=== PATIENT | male | born 1980 | race Caucasian/White ===

== ENCOUNTER 2021-12-09 17:49 | Emergency (ER) | payer OTHER, SELFPAY ==
--- NOTE | ~2021-12-09 | CT_ITS ---
EXAMINATION: CT abdomen pelvis w con DATE: 12/09/2021 23:01 INDICATION: Left upper quadrant abdominal pain, nausea and vomiting. Constipation. History of gastric bypass surgery 6 years ago. TECHNIQUE: Computed tomography (CT) of the abdomen and pelvis was performed with 100 CC Omnipaque 300 intravenous contrast. Automated exposure control and iterative reconstruction technique were employe d. Exam dose: 935.58 mGy-cm total exam DLP. COMPARISON: 02/06/2017 CT abdomen pelvis FINDINGS: The lung bases are clear. Normal heart size. No pericardial or pleural effusion. Status post gastric bypass surgery. Cannot exclude small stones in the dependent aspect of the gallbladder. Consider gallbladder ultrasou nd correlation. No pericholecystic fluid or fat stranding or abnormal gallbladder distention. No bile duct or pancreatic duct dilatation. No hepatic, splenic or pancreatic or adrenal space-occupying mass lesion. No renal mass lesion or urinary tract calculus or hydroureteronephrosis. The urinary bladder is diste nded. No bladder wall thickening or intraluminal filling defect is noted. Prominent bilateral facet d ifference calcifications, suggesting diabetes. Normal caliber of the abdominal aorta. No intraperitoneal or retroperitoneal or pelvic mass lesion or adenopathy or ascites. Normal appendix. No bowel obstruction or intraperitoneal free air. Very small fat-containing umbilical and left inguinal hernia is No suspicious osteolytic or osteoblastic lesions. IMPRESSION: Possible cholelithiasis Status post gastric bypass surgery Vas deferens calcifications, suggesting diabetes Reviewed, dictated and finalized at [facility] Reviewed, dictated and finalized at [facility].
[2021-12-09 19:06] VITALS: BP 128/86; PULSE 88; RESP 18; TEMP 36.2; O2SAT 99
--- NOTE | 2021-12-09 21:34 | ECG_ITS ---
Measurements Intervals Martin Rate: 83 P: 32 CA: 165 QRS: -1 QRSD: 96 T: 8 QT: 402 QTc: 474 Interpretive Statements SINUS RHYTHM NORMAL ECG Electronically Signed On 12-10-2021 7:14:43 CDT by Jadiel Salmeron D.O.
--- NOTE | 2021-12-09 21:34 | ED.DIZZY ---
HPI - Dizziness General Chief Complaint: Dizziness Stated Complaint: Dizzy/weak/abd pain Time Seen by Provider: 12/09/21 21:13 History of Present Illness HPI Narrative: Patient is a 41-year-old male complaining of left upper quadrant pain, 7 out of 10, sharp, nonradiating accompanied by nausea and dizziness that started 2 days ago. Patient denies any chest pain, shortness of breath, vomiting, diarrhea, urinary symptoms, fever or chills. Related Data Home Medications Medication Instructions Recorded Confirmed bupropion HCl 150 mg tablet,12 hr mg PO 12/09/21 sustained-release buspirone 7.5 mg tablet mg 12/09/21 dapagliflozin 10 mg tablet mg 12/09/21 (Farxiga) dulaglutide 1.5 mg/0.5 mL mg subcut 12/09/21 [facility] metformin 1,000 mg tablet mg 12/09/21 paroxetine HCl 20 mg tablet mg PO 12/09/21 rosuvastatin 20 mg tablet mg 12/09/21 12/09/21 Allergies Allergy/AdvReac Type Severity Reaction Status Date / Time codeine AdvReac Unknown Nausea Verified 02/06/17 09:50 sumatriptan AdvReac Unknown STIFF NECK Verified 02/06/17 09:51 Review of Systems Review of Systems: All systems reviewed & are unremarkable except as noted in HPI and below Constitutional: Constitutional: Denies body ache(s), Denies chills, Denies excessive sweating, Denies fatigue, Denies fever(s), Denies headache(s), Denies lethargy, Denies malaise, Denies weakness and Denies weight loss Eyes: Eyes: Denies blurry vision, Denies change in vision and Denies loss of vision ENT: Denies dizziness, Denies ear discharge, Denies headache(s), Denies lip swelling, Denies epistaxis, Denies nasal congestion, Denies neck pain, Denies throat swelling and Denies tongue swelling Cardiovascular: Cardiovascular: Denies chest pain, Denies chest pain at rest, Denies chest pain with activity, Denies diaphoresis, Denies rapid heart rate, Denies edema, Denies irregular heart rhythm, Denies lightheadedness, Denies palpitations, Denies dyspnea and Denies dyspnea on exertion Respiratory: Respiratory: Denies chest congestion, Denies cough, Denies hemoptysis, Denies dyspnea and Denies dyspnea on exertion Gastrointestinal: Gastrointestinal: Denies melena, Denies hematochezia, Denies diarrhea, Denies vomiting and Denies hematemesis Musculoskeletal: Musculoskeletal: Denies abnormal gait, Denies deformity, Denies joint swelling, Denies limited range of motion, Denies neck pain and Denies numbness Neurologic: Denies Abnormal speech present, Denies abnormal gait, Denies confusion, Denies headache(s), Denies focal weakness, Denies loss of vision, Denies numbness, Denies Other visual disturbances, Denies Sensory deficit (Neuro) and Denies weakness Psychiatric: Psychiatric: Denies confusion, Denies depression, Denies auditory hallucinations, Denies homicidal ideation and Denies suicidal ideation Endocrine: Endocrine: Denies cold intolerance, Denies excessive sweating, Denies fatigue, Denies heat intolerance and Denies palpitations Hematologic/Lymphatic: Hematologic/Lymphatic: Denies easy bleeding and Denies easy bruising Allergic/Immunologic: Allergic/Immunologic: Denies lip swelling, Denies throat swelling and Denies tongue swelling [facility] Family History Family History (Updated 01/08/14 @ 07:13 by DOCTOR UNKNOWN) Father Hypertension Social History Social History Second hand tobacco smoke exposure: No Smoking end date: 05/14/09 Alcohol intake: current Course Vital Signs Vital signs: Vital Signs Temperature 36.2 C L 12/09/21 19:06 Pulse Rate 88 12/09/21 19:06 Respiratory Rate 18 12/09/21 19:06 Blood Pressure 128/86 12/09/21 19:06 Pulse Oximetry 99 12/09/21 19:06 Oxygen Delivery Room Air 12/09/21 19:06 Temperature 36.2 C L 12/09/21 19:06 Pulse Rate 103 H 12/09/21 21:47 Respiratory Rate 20 12/09/21 21:47 Blood Pressure 148/87 H 12/09/21 21:47 Pulse Oximetry 99 12/09/21 21:47 Oxygen Delivery
[2021-12-09 21:47] VITALS: BP 148/87; PULSE 103; RESP 20; O2SAT 99
[2021-12-09] MEDS: PROMETHAZINE HCL 25 MG/ML AMPUL 12.5 MG IV PUSH (22:13)
[2021-12-09] MEDS: SODIUM CHLORIDE 0.9% IV 100 ML 20 ML (22:16)
[2021-12-09] MEDS: SODIUM CHLORIDE 0.9% IV 1,000 ML 999 ML IV CONT (22:17)
[2021-12-09 22:26] LABS: Basophils Absolute Auto 0.1 K/mm3 (0.0-0.1); Basophils Percent Auto 0.5 % (0.2-1.2); Hematocrit 22.8 % (42.0-52.0); Hemoglobin 7.6 g/dL (14.0-18.0); Immature Granulocyte Absolute 0.18 K/mm3 (0.00-0.031); Immature Granulocyte Percent A 1.8 % (0-0.5); Lymphocytes Absolute Auto 3.31 K/mm3 (0.9-3.2); Lymphocytes Percent Auto 33.6 % (18.3-44.2); Mean Corpuscular HGB Conc 33.3 g/dl (32-36); Mean Corpuscular Hemoglobin 29.3 pg (26-34); Mean Platelet Volume 9.6 fl (7.4-10.4); Monocytes Absolute Auto 0.6 K/mm3 (0.1-0.6); Monocytes Percent Auto 5.8 % (2.6-8.5); Neutrophils Absolute Auto 5.7 K/mm3 (1.3-6.7); Neutrophils Percent Auto 58.3 % (45.5-73.1); Nucleated Red Blood Cells Absolute Auto 0.1 K/mm3 (0.0-0.012); Nucleated Red Blood Cells Perc 0.8 % (0.0-0.2); Platelet Count Result 253 k/mm3 (150-375); Red Blood Count 2.59 M/mm3 (4.6-6.20); Red Cell Distribution Width 14.3 % (11.5-14.5); White Blood Count 9.8 K/mm3 (4.5-10.0)
[2021-12-09 22:36] LABS: Alanine Aminotransferase 19 U/L (6-50); Albumin Level 4.5 g/dL (3.5-5.1); Alkaline Phosphatase 39 U/L (38-126); Anion Gap 19 mmol/L (8-16); Aspartate Amino Transferase 24 U/L (17-59); Bilirubin,Total 0.6 mg/dL (0.2-1.3); Blood Urea Nitrogen 27 mg/dL (9-20); Calcium 8.8 mg/dL (8.4-10.2); Carbon Dioxide 18 mmol/L (22-30); Chloride 99 mmol/L (98-107); Estimated CRCL calculation 136 ml/min; Estimated Glomerular Filt Rate > 60; Glucose 153 mg/dL (65-110); Lipase 308 U/L (23-300); Potassium 3.7 mmol/L (3.4-5.0); Sodium 136 mmol/L (137-145)
[2021-12-09 22:48] LABS: Troponin I < 0.012 ng/mL (0.000-0.034)
[2021-12-10 00:31] VITALS: BP 142/70; PULSE 90; RESP 18; O2SAT 100
== END 2021-12-10 00:30 | disposition home or self-care (01) ==
PROVIDERS: Emergency Provider Emergency Medicine; PCP Nurse Practitioner
DX: R10.12 Left upper quadrant pain (principal); D64.9 Anemia, unspecified; Z87.891 Personal history of nicotine dependence; Z79.84 Long term (current) use of oral hypoglycemic drugs; Z98.84 Bariatric surgery status; R93.2 Abnormal findings on diagnostic imaging of liver and biliary tract
CPT/HCPCS: 36415; 74177; 80053; 83690; 84484; 85025; 93005; 96361; 96374; 99284; J2550; J7030; Q9967

== ENCOUNTER 2023-01-29 14:01 | Observation (INO) | payer OTHER, SELFPAY ==
[2023-01-29] VITALS (26 sets, daily range): BP systolic 118–140; BP diastolic 69–88; PULSE 61–88; RESP 12–30; TEMP 35.9–36.4; O2SAT 95–100; BMI 28.8
--- NOTE | ~2023-01-29 | XR_ITS ---
Clinical Indication: Chest pain AP and lateral views of the chest: Comparison: 08/31/2015 Findings: The lungs are clear, without evidence of focal consolidation or pleural effusion. Cardiome diastinal silhouette is within normal limits. Bones and soft tissues are unremarkable. Impression: Normal chest. Reviewed, dictated and finalized at location . Impression: Normal chest.
[2023-01-29 14:08] LABS: Glucose Point of Care 141 mg/dl (65-105)
--- NOTE | 2023-01-29 14:12 | ECG_ITS ---
Measurements Intervals Ruby Rate: 69 P: 11 NE: 165 QRS: 34 QRSD: 157 T: 32 QT: 404 QTc: 433 Interpretive Statements SINUS RHYTHM BASELINE ARTIFACT- V1-V6 NORMAL ECG COMPARED TO ECG 12/09/2021 21:47:47 NO SIGNIFICANT CHANGES Electronically Signed On 01-29-2023 14:37:05 CDT by Jadiel Salmeron D.O.
--- NOTE | 2023-01-29 14:14 | PC.NURSE ---
aspirin protocol contraindicated and pt refused due to hx of GI bleed.
[2023-01-29 14:23] LABS: Basophils Absolute Auto 0.1 K/mm3 (0.0-0.1); Basophils Percent Auto 0.8 % (0.2-1.2); Eosinophils Percent Auto 0.5 % (0-4.4); Hematocrit 41.6 % (42.0-52.0); Hemoglobin 14.2 g/dL (14.0-18.0); Immature Granulocyte Absolute 0.03 K/mm3 (0.00-0.031); Immature Granulocyte Percent A 0.5 % (0-0.5); Lymphocytes Absolute Auto 2.37 K/mm3 (0.9-3.2); Lymphocytes Percent Auto 37.8 % (18.3-44.2); Mean Corpuscular HGB Conc 34.1 g/dl (32-36); Mean Corpuscular Hemoglobin 29.6 pg (26-34); Mean Corpuscular Volume 86.8 fl (80-100); Mean Platelet Volume 9.6 fl (7.4-10.4); Monocytes Absolute Auto 0.5 K/mm3 (0.1-0.6); Monocytes Percent Auto 8.3 % (2.6-8.5); Neutrophils Absolute Auto 3.3 K/mm3 (1.3-6.7); Neutrophils Percent Auto 52.1 % (45.5-73.1); Platelet Count Result 277 k/mm3 (150-375); Red Blood Count 4.79 M/mm3 (4.6-6.20); Red Cell Distribution Width 12.2 % (11.5-14.5); White Blood Count 6.3 K/mm3 (4.5-10.0)
--- NOTE | 2023-01-29 14:25 | PC.NURSE ---
pt off floor for xray @[id number]
[2023-01-29 14:34] LABS: Alanine Aminotransferase 26 U/L (6-50); Albumin Level 4.9 g/dL (3.5-5.1); Alkaline Phosphatase 44 U/L (38-126); Anion Gap 12 mmol/L (8-16); Aspartate Amino Transferase 29 U/L (17-59); Bilirubin,Total 1.8 mg/dL (0.2-1.3); Blood Urea Nitrogen 16 mg/dL (9-20); Calcium 9.7 mg/dL (8.4-10.2); Carbon Dioxide 24 mmol/L (22-30); Chloride 103 mmol/L (98-107); Estimated CRCL calculation 117 ml/min; Estimated Glomerular Filt Rate > 60; Glucose 134 mg/dL (65-110); Lipase 281 U/L (23-300); Potassium 4.1 mmol/L (3.4-5.0); Sodium 139 mmol/L (137-145)
[2023-01-29 14:38] LABS: Prothrombin Time 13.6 Seconds (11.1-14.7)
[2023-01-29 14:39] LABS: Partial Thromboplastin Time 29.2 SECONDS (22.3-36.8)
[2023-01-29 14:53] LABS: Troponin I < 0.012 ng/mL (0.000-0.034)
--- NOTE | 2023-01-29 15:12 | ED.CHESTPAIN ---
HPI - Chest Pain General Chief Complaint: Chest Pain Stated Complaint: cp Time Seen by Provider: 01/29/23 14:30 History of Present Illness HPI narrative: This is a 42-year-old male, past history of hypertension, diabetes and hyperlipidemia, presents emergency department complaining of chest pain. The patient states he was in his usual state of health, when he felt a quick/pressure-like chest pain, rated 5/10 with radiation to the left arm and left arm numbness. He states that this was associated with lightheadedness, and worsened with physical exertion. He states it did not improve until he was given nitro by EMS. He denies associated nausea or shortness of breath. Related Data Home Medications Medication Instructions Recorded Confirmed bupropion HCl 150 mg tablet,12 hr 150 mg PO DAILY 12/09/21 01/29/23 sustained-release buspirone 7.5 mg tablet See Rx Instructions .Route .COMPLEX 12/09/21 01/29/23 dapagliflozin propanediol 10 mg 10 mg PO DAILY 12/09/21 01/29/23 tablet (Farxiga) dulaglutide 1.5 mg/0.5 mL 3 mg subcut WEEKLY 12/09/21 01/29/23 subcutaneous pen injector ([facility]) metformin 1,000 mg tablet 1,000 mg PO BID 12/09/21 01/29/23 paroxetine HCl 20 mg tablet 40 mg PO DAILY 12/09/21 01/29/23 rosuvastatin 20 mg tablet 20 mg PO DAILY 12/09/21 01/29/23 clonazepam 0.5 mg tablet 0.5 mg PO HS 01/29/23 01/29/23 hydroxyzine HCl 25 mg tablet 50 mg PO HS 01/29/23 01/29/23 lorazepam 1 mg tablet 1 mg PO PRN PRN Anxiety 01/29/23 01/29/23 magnesium 250 mg tablet 500 mg PO DAILY 01/29/23 01/29/23 mecobalamin (vitamin B12) 1,000 1,000 mcg PO 3XW 01/29/23 01/29/23 mcg chewable tablet (B12 Active) primidone 50 mg tablet 50 mg PO DAILY 01/29/23 01/29/23 propranolol 120 mg capsule,24 120 mg PO DAILY 01/29/23 01/29/23 hr,extended release Allergies Allergy/AdvReac Type Severity Reaction Status Date / Time codeine AdvReac Unknown Nausea Verified 02/06/17 09:50 sumatriptan AdvReac Unknown STIFF NECK Verified 02/06/17 09:51 Review of Systems Review of Systems: CONSTITUTIONAL: Denies fever, chills, or sweats. CARDIOVASCULAR: Chest pain radiating to the left arm denies palpitations, or edema. RESPIRATORY: Denies cough or dyspnea. GASTROINTESTINAL: Denies abdominal pain, nausea, vomiting, or diarrhea. GENITOURINARY: Denies dysuria or hematuria. SKIN: Denies rash or itching. MUSCULOSKELETAL: Denies back pain, joint pain, or myalgia. NEUROLOGIC: Lightheadedness now improved denies headache, numbness, dizziness, or weakness. PSYCHIATRIC: Denies anxiety or depression. [facility] Past Medical History Medical History (Updated 01/29/23 @ 15:48 by Roel Darnell MD) Depression with anxiety Dyslipidemia Essential (primary) hypertension Essential tremor Migraine Obstructive sleep apnea (adult) (pediatric) Type 2 diabetes mellitus without complications Surgical History Surgical History (Updated 01/29/23 @ 15:16 by Roel Darnell MD) History of gastric bypass Family History Family History Father Hypertension Social History Social History Smoking status: Light tobacco smoker Tobacco type: pipe and cigars Second hand tobacco smoke exposure: No Smoking end date: 05/14/09 Additional smoking assessment comments: 4-6 per year Alcohol intake: former Substance use: never Lack of Transportation: No Lack of Food: Never True Current Housing: I Have Housing Concerned About Future Housing: No Difficulty Paying Gas/Electric Bills: No Difficulty Paying for Meds: No Currently Unemployed: No Education: Master's Degree or Higher Difficulty w/ Childcare or Family Care: No Gender identity (if verbalized by the patient): Genderqueer Spiritual care concerns: No Exam Narrative: GENERAL: Well-developed, well-nourished, and in no acute distress. HEAD: Normocephalic, atraumatic.
[2023-01-29 16:25] LABS: Glucose Point of Care 122 mg/dl (65-105)
[2023-01-29 17:42] LABS: Glucose Point of Care 95 mg/dl (65-105)
[2023-01-29 18:01] LABS: Troponin I < 0.012 ng/mL (0.000-0.034)
[2023-01-29 19:59] LABS: Glucose Point of Care 138 mg/dl (65-105)
--- NOTE | 2023-01-29 20:34 | PM.IMHP ---
H&P: HPI History of Present Illness Date/Time: 01/29/23 19:00 Chief Complaint: Chest pain. Narrative: This is a 42-year-old male with hypertension, hyperlipidemia, type 2 diabetes mellitus, obstructive sleep apnea, and essential tremor who presented to the emergency department via EMS from home for evaluation of chest pain. The patient provides the following history. He felt fine when he got up this morning. Not long prior to arrival he developed sudden onset of a pressure-like chest pain radiating to the left arm associated with left arm numbness. He was also feeling lightheaded at that time. Symptoms seem to be worse with physical exertion. Nitro given per EMS improved his chest discomfort. He denies associated nausea, shortness of breath, and sweats. Vital signs were stable on arrival to the emergency department. CMP and CBC were relatively unremarkable and his initial troponin was normal. EKG showed a sinus rhythm without acute ST segment changes. Given his risk factors he is being admitted in this setting for close monitoring and Cardiology consultation. Review of Systems Review of Systems: Twelve systems were reviewed and are negative except for as per HPI. [facility] Past Medical History Medical History (Updated 01/30/23 @ 16:39 by Alma Jeffers PA-C) Depression with anxiety Dyslipidemia Essential (primary) hypertension Essential tremor Migraine Obstructive sleep apnea (adult) (pediatric) No longer using CPAP following weight loss. Type 2 diabetes mellitus without complications Surgical History Surgical History History of gastric bypass Family History Family History Father Hypertension Social History Social History (Updated 01/30/23 @ 16:39 by Alma Jeffers PA-C) Social History: Surrogate medical decision maker: Kenya Willoughbyar, spouse. Code status: Full code. Smoking status: Light tobacco smoker Tobacco type: pipe and cigars Second hand tobacco smoke exposure: No Smoking end date: 05/14/09 Additional smoking assessment comments: 4-6 per year Alcohol intake: former Substance use: never Lack of Transportation: No Lack of Food: Never True Current Housing: I Have Housing Concerned About Future Housing: No Difficulty Paying Gas/Electric Bills: No Difficulty Paying for Meds: No Currently Unemployed: No Education: Master's Degree or Higher Difficulty w/ Childcare or Family Care: No Spiritual care concerns: No Meds Home Medications and Allergies Home Medications Medication Instructions Recorded Confirmed Type bupropion HCl 150 mg tablet,12 hr 150 mg PO DAILY 12/09/21 01/29/23 History sustained-release buspirone 7.5 mg tablet See Rx Instructions .Route .COMPLEX 12/09/21 01/29/23 History dapagliflozin propanediol 10 mg 10 mg PO DAILY 12/09/21 01/29/23 History tablet (Farxiga) dulaglutide 1.5 mg/0.5 mL 3 mg subcut WEEKLY 12/09/21 01/29/23 History subcutaneous pen injector (Trulicity) metformin 1,000 mg tablet 1,000 mg PO BID 12/09/21 01/29/23 History paroxetine HCl 20 mg tablet 40 mg PO DAILY 12/09/21 01/29/23 History rosuvastatin 20 mg tablet 20 mg PO DAILY 12/09/21 01/29/23 History clonazepam 0.5 mg tablet 0.5 mg PO HS 01/29/23 01/29/23 History hydroxyzine HCl 25 mg tablet 50 mg PO HS 01/29/23 01/29/23 History lorazepam 1 mg tablet 1 mg PO PRN PRN Anxiety 01/29/23 01/29/23 History magnesium 250 mg tablet 500 mg PO DAILY 01/29/23 01/29/23 History mecobalamin (vitamin B12) 1,000 1,000 mcg PO 3XW 01/29/23 01/29/23 History mcg chewable tablet (B12 Active) primidone 50 mg tablet 50 mg PO DAILY 01/29/23 01/29/23 History propranolol 120 mg capsule,24 120 mg PO DAILY 01/29/23 01/29/23 History hr,extended release Allergies Allergy/AdvReac Type Severity Reaction Status Date / Time codeine AdvReac Unknown Nausea Verified 02/06/17 0
[2023-01-29 20:53] LABS: Troponin I < 0.012 ng/mL (0.000-0.034)
[2023-01-29] MEDS: clonazePAM (*CRX) 0.5 MG TABLET PO (23:37)
[2023-01-29] MEDS: hydrOXYzine HCL 25 MG TABLET 50 MG PO (23:37)
[2023-01-30] VITALS (10 sets, daily range): BP systolic 118–127; BP diastolic 74–81; PULSE 60–73; RESP 16–18; TEMP 36–36.4; O2SAT 92–98
[2023-01-30 05:10] LABS: Basophils Percent Auto 0.7 % (0.2-1.2); Eosinophils Absolute Auto 0.1 K/mm3 (0-0.3); Eosinophils Percent Auto 1.1 % (0-4.4); Hemoglobin 13.3 g/dL (14.0-18.0); Immature Granulocyte Absolute 0.03 K/mm3 (0.00-0.031); Immature Granulocyte Percent A 0.5 % (0-0.5); Lymphocytes Absolute Auto 2.43 K/mm3 (0.9-3.2); Lymphocytes Percent Auto 42.7 % (18.3-44.2); Mean Corpuscular HGB Conc 33.3 g/dl (32-36); Mean Corpuscular Hemoglobin 29.6 pg (26-34); Mean Corpuscular Volume 89.1 fl (80-100); Mean Platelet Volume 9.3 fl (7.4-10.4); Monocytes Absolute Auto 0.4 K/mm3 (0.1-0.6); Monocytes Percent Auto 7.2 % (2.6-8.5); Neutrophils Absolute Auto 2.7 K/mm3 (1.3-6.7); Neutrophils Percent Auto 47.8 % (45.5-73.1); Platelet Count Result 203 k/mm3 (150-375); Red Blood Count 4.49 M/mm3 (4.6-6.20); Red Cell Distribution Width 12.2 % (11.5-14.5); White Blood Count 5.7 K/mm3 (4.5-10.0)
[2023-01-30 05:18] LABS: Anion Gap 6 mmol/L (8-16); Blood Urea Nitrogen 16 mg/dL (9-20); Calcium 9.2 mg/dL (8.4-10.2); Carbon Dioxide 30 mmol/L (22-30); Chloride 101 mmol/L (98-107); Estimated CRCL calculation 105 ml/min; Estimated Glomerular Filt Rate > 60; Glucose 103 mg/dL (65-110); Potassium 3.9 mmol/L (3.4-5.0); Sodium 137 mmol/L (137-145)
[2023-01-30 05:33] LABS: Hemoglobin A1C 6.7 % (<5.7)
[2023-01-30 06:32] LABS: Thyroid Stimulating Hormone Reflex 0.757 uIU/mL (0.465-4.68)
[2023-01-30 08:23] LABS: Glucose Point of Care 144 mg/dl (65-105)
[2023-01-30] MEDS: EMPAGLIFLOZIN 25 MG TABLET PO (09:36)
[2023-01-30] MEDS: MAGNESIUM OXIDE 400 MG TABLET PO (09:36)
[2023-01-30] MEDS: PROPRANOLOL HCL 60 MG CAPSULE CR 120 MG PO (09:37)
[2023-01-30] MEDS: ROSUVASTATIN 10 MG TABLET 20 MG PO (09:37)
[2023-01-30] MEDS: PRIMIDONE 50 MG TABLET PO (09:37)
[2023-01-30] MEDS: PARoxetine 20 MG TABLET 40 MG PO (09:37)
--- NOTE | 2023-01-30 10:59 | PM.DS ---
DS: Admitting Diagnosis Discharge Date 01/30/2023 Admitting Diagnosis Chest pain DS: Discharge Diagnosis Discharge Diagnosis (1) Chest pain: Qualifiers: Chest pain type: unspecified Qualified Code(s): R07.9 - Chest pain, unspecified Code(s): R07.9 - Chest pain, unspecified Status: Acute (2) Dyslipidemia: Code(s): E78.5 - Hyperlipidemia, unspecified Status: Acute (3) Essential (primary) hypertension: Code(s): I10 - Essential (primary) hypertension Status: Acute (4) Type 2 diabetes mellitus: Code(s): E11.9 - Type 2 diabetes mellitus without complications Status: Acute DS: Summary Hospital Course Hospital Course: This is a 42-year-old male with hypertension, hyperlipidemia, type 2 diabetes mellitus, obstructive sleep apnea, and essential tremor who presented to the emergency department via EMS from home for evaluation of chest pain. Vital signs were stable on arrival to the emergency department. CMP and CBC were relatively unremarkable and his initial troponin was normal. EKG showed a sinus rhythm without acute ST segment changes. Cardiology was consulted. No further intervention. patient stable and is being discharged home Time Spent with Patient Time attestation: Total time spent providing and/or coordinating discharge services: DS: Data Data Completed and Pending Labs on day of discharge: Labs from last 24 hours 01/30/23 01/30/23 01/29/23 07:54 04:57 19:56 WBC 5.7 RBC 4.49 L Hgb 13.3 L Hct 40.0 L MCV 89.1 MCH 29.6 MCHC 33.3 RDW 12.2 Plt Count 203 MPV 9.3 Immature Gran % (Auto) 0.5 Neut % (Auto) 47.8 Lymph % (Auto) 42.7 Hill % (Auto) 7.2 Eos % (Auto) 1.1 Baso % (Auto) 0.7 Lymph # (Auto) 2.43 Hill # (Auto) 0.4 Eos # (Auto) 0.1 Baso # (Auto) 0.0 Abs Immat Gran (auto) 0.03 Absolute Neuts (auto) 2.7 Absolute Nucleated RBC 0.0 Nucleated RBC % 0.0 PT INR APTT Sodium 137 Potassium 3.9 Chloride 101 Carbon Dioxide 30 Anion Gap 6 L BUN 16 Creatinine 0.90 Estim Creat Clear Calc 105 Estimated GFR > 60 Glucose 103 POC Capillary Glucose 144 H Hemoglobin A1c 6.7 H Calcium 9.2 Magnesium 2.0 Total Bilirubin AST ALT Alkaline Phosphatase Troponin I < 0.012 Total Protein Albumin Lipase TSH (Reflex) 0.757 01/29/23 01/29/23 01/29/23 19:55 17:40 17:06 WBC RBC Hgb Hct MCV MCH MCHC RDW Plt Count MPV Immature Gran % (Auto) Neut % (Auto) Lymph % (Auto) Hill % (Auto) Eos % (Auto) Baso % (Auto) Lymph # (Auto) Hill # (Auto) Eos # (Auto) Baso # (Auto) Abs Immat Gran (auto) Absolute Neuts (auto) Absolute Nucleated RBC Nucleated RBC % PT INR APTT Sodium Potassium Chloride Carbon Dioxide Anion Gap BUN Creatinine Estim Creat Clear Calc Estimated GFR Glucose POC Capillary Glucose 138 H 95 Hemoglobin A1c Calcium Magnesium Total Bilirubin AST ALT Alkaline Phosphatase Troponin I < 0.012 Total Protein Albumin Lipase TSH (Reflex) 01/29/23 01/29/23 01/29/23 16:20 14:15 14:05 WBC 6.3 RBC 4.79 Hgb 14.2 D Hct 41.6 L MCV 86.8 MCH 29.6 MCHC 34.1 RDW 12.2 Plt Count 277 MPV 9.6 Immature Gran % (Auto) 0.5 Neut % (Auto) 52.1 Lymph % (Auto) 37.8 Hill % (Auto) 8.3 Eos % (Auto) 0.5 Baso % (Auto) 0.8 Lymph # (Auto) 2.37 Hill # (Auto) 0.5 Eos # (Auto) 0.0 Baso # (Auto) 0.1 Abs Immat Gran (auto) 0.03 Absolute Neuts (auto) 3.3 Absolute Nucleated RBC 0.0 Nucleated RBC % 0.0 PT 13.6 INR 1.0 APTT 29.2 Sodium 139 Potassium 4.1 Chloride 103 Carbon Dioxide 24 Anion Gap 12 BUN 16 D Creatinine 0.80 Estim Creat Clear Calc
--- NOTE | 2023-01-30 12:12 | PM.CNCAR ---
Assessment and Plan Assessment and plan (1) Chest pain: Qualifiers: Chest pain type: unspecified Qualified Code(s): R07.9 - Chest pain, unspecified Code(s): R07.9 - Chest pain, unspecified Status: Acute Assessment and Plan: Atypical chest pain with negative serial troponin and EKG without any ischemic changes. Chest pain most likely not cardiac. No recurrence of chest pain. Could consider outpatient stress testing if he has further symptoms. No further cardiac workup indicated at this time. Follow up with PCP (2) Essential (primary) hypertension: Code(s): I10 - Essential (primary) hypertension Status: Acute Assessment and Plan: At goal. (3) Dyslipidemia: Code(s): E78.5 - Hyperlipidemia, unspecified Status: Acute Assessment and Plan: On statin. History of Present Illness History of Present Illness Consult date/time: 01/30/23 12:12 Requesting physician: Roel Darnell MD Consult reason: chest pain Reason For Visit: Chest Pain Narrative: Roel Townsend is a42 year old male with hypertension, hyperlipidemia, type 2 diabetes mellitus, and anxiety. He comes to the hospital with a chief complaint of chest pain. He was on a phone call yesterday when he began to notice he was having trouble remembering parts of his conversation. He then began to experience some left sided chest pain and left arm pain. EMS was called and he was given nitroglycerin which relieved the pain. He has not had any recurrence of chest pain. Does have a history of chest pain thought to be related to anxiety and has had a negative stress test in the past. He is comfortable and free from chest pain at the time I am seeing him. Review of Systems Review of Systems: All systems reviewed & are unremarkable except as noted in HPI and below PMFSH Past Medical History Medical History Depression with anxiety Dyslipidemia Essential (primary) hypertension Essential tremor Migraine Obstructive sleep apnea (adult) (pediatric) Type 2 diabetes mellitus without complications Surgical History Surgical History History of gastric bypass Family History Family History Father Hypertension Social History Social History Smoking status: Light tobacco smoker Tobacco type: pipe and cigars Second hand tobacco smoke exposure: No Smoking end date: 05/14/09 Additional smoking assessment comments: 4-6 per year Alcohol intake: former Substance use: never Lack of Transportation: No Lack of Food: Never True Current Housing: I Have Housing Concerned About Future Housing: No Difficulty Paying Gas/Electric Bills: No Difficulty Paying for Meds: No Currently Unemployed: No Education: Master's Degree or Higher Difficulty w/ Childcare or Family Care: No Gender identity (if verbalized by the patient): Genderqueer Spiritual care concerns: No Meds Home Medications and Allergies Home Medications Medication Instructions Recorded Confirmed Type bupropion HCl 150 mg tablet,12 hr 150 mg PO DAILY 12/09/21 01/29/23 History sustained-release buspirone 7.5 mg tablet See Rx Instructions .Route .COMPLEX 12/09/21 01/29/23 History dapagliflozin propanediol 10 mg 10 mg PO DAILY 12/09/21 01/29/23 History tablet (Farxiga) dulaglutide 1.5 mg/0.5 mL 3 mg subcut WEEKLY 12/09/21 01/29/23 History subcutaneous pen injector (Trulicity) metformin 1,000 mg tablet 1,000 mg PO BID 12/09/21 01/29/23 History paroxetine HCl 20 mg tablet 40 mg PO DAILY 12/09/21 01/29/23 History rosuvastatin 20 mg tablet 20 mg PO DAILY 12/09/21 01/29/23 History clonazepam 0.5 mg tablet 0.5 mg PO HS 01/29/23 01/29/23 History hydroxyzine HCl 25 mg tablet 50 mg PO HS
== END 2023-01-30 13:06 | disposition home or self-care (01) ==
LOC: ANHED 15:48 → ANHIMU 16:31
PROVIDERS: Physician Assistant; Admitting Provider Hospitalist; Emergency Provider Preventive Medicine Aerospace Medicine; PCP Nurse Practitioner; Visit Provider Hospitalist
DX: R07.9 Chest pain, unspecified (principal); E11.9 Type 2 diabetes mellitus without complications; I10 Essential (primary) hypertension; E78.5 Hyperlipidemia, unspecified; Z87.891 Personal history of nicotine dependence
CPT/HCPCS: 36415; 71046; 80048; 80053; 82948; 83036; 83690; 83735; 84443; 84484; 85025; 85610; 85730; 93005; 99285; A9270; G0378